=== PATIENT | female | born 1950 | race Caucasian/White ===

== ENCOUNTER 2016-04-17 09:27 | Emergency (ER) | payer MEDICARE, OTHER ==
[~2016-04-17] VITALS: Wt 75.5 kg
[~2016-04-17 09:27] MED LIST: AMLO-147 PO; ASPI-664 PO; BENA20TA48 PO; CHOL100062 PO; CIPR500T4 PO; CLOT30CR24 TOP; FLUT16SP17 NASAL; LEVO200T45 PO; METF-382 PO; NAPR500T8 PO; OMEP20CA16 PO; PHEN-538 PO; TIMO10DR7 BOTH EYES; ZOC20 PO
[2016-04-17] MEDS ORDERED: ONDANSETRON 4 MG INJ IV STA (10:22)
[2016-04-17] MEDS ORDERED: morphine 2 MG INJ IV STA (10:22)
[2016-04-17] MEDS ORDERED: SOD CHLORIDE 0.9% 1,000 ML IV STA (10:22)
[2016-04-17 10:59] LABS: BASOPHILS % 0.5 % (0.0-2.0); EOSINOPHILS % 0.5 % (0.0-7.0); HEMOGLOBIN 13.7 g/dl (12.0-16.0); LYMPHOCYTES # 1.8 10^3/ul (0.8-2.9); MEAN CORPUSCULAR HEMOGLOBIN 28.9 pg (29.0-33.0); MEAN CORPUSCULAR HGB CONC 33.3 g/dl (32.0-37.0); MEAN CORPUSCULAR VOLUME 86.8 fl (82.0-101.0); MEAN PLATELET VOLUME 9.5 fl (7.4-10.4); MONOCYTE # 0.5 10^3/ul (0.3-0.9); MONOCYTES % 5.4 % (0.0-11.0); NEUTROPHIL # 6.4 10^3/ul (1.6-7.5); NEUTROPHILS % 72.6 % (39.0-77.0); PLATELET COUNT 293 10^3/UL (140-440); RED BLOOD COUNT 4.73 10^6/ul (4.20-5.40); RED CELL DISTRIBUTION WIDTH 14.1 % (11.5-14.5); UNCORRECTED WBC 8.8 10^3/ul (4.8-10.8); WHITE BLOOD COUNT 8.8 10^3/ul (4.8-10.8)
[2016-04-17 11:00] LABS: ADD UMIC YES; URINE BILIRUBIN (Dip) NEGATIVE (NEGATIVE); URINE BLOOD (Dip) TRACE (NEGATIVE); URINE COLOR LT. YELLOW (YELLOW); URINE KETONES (Dip) NEGATIVE (NEGATIVE); URINE LEUKOCYTE ESTERASE (Dip) 3+ (NEGATIVE); URINE NITRITE (Dip) NEGATIVE (NEGATIVE); URINE TOTAL PROTEIN (Dip) NEGATIVE (NEGATIVE); URINE UROBILINOGEN (Dip) 0.2 E.U./dL (0.1-1.0)
[2016-04-17 11:02] LABS: CONDITION 1
[2016-04-17 11:03] LABS: ALBUMIN 4.6 g/dl (3.3-4.9)
[2016-04-17 11:06] LABS: ALBUMIN/GLOBULIN RATIO 1.09; BILIRUBIN,INDIRECT 0.4 mg/dl (0-1.1); BILIRUBIN,TOTAL 0.4 mg/dl (0.2-1.3); CREATININE 0.45 mg/dl (0.44-1.00); TOTAL PROTEIN 8.8 g/dl (6.1-8.1)
[2016-04-17 11:07] LABS: CALCIUM 9.2 mg/dl (8.4-10.2)
[2016-04-17 11:12] LABS: SQUAMOUS EPITHELIAL CELL,UR MODERATE; URINE RBCS 0-2 /HPF ([, 0])
[2016-04-17 11:13] LABS: BACTERIA,URINE FEW
--- NOTE | 2016-04-17 12:04 | RADRPT ---
PROCEDURE: CT Abdomen and Pelvis without contrast CLINICAL INDICATION: Abdominal pain with radiation to lower back with nausea TECHNIQUE: Transaxial images were obtained through the abdomen and pelvis on a multi-slice scanner without the intravenous contrast administration. No oral contrast had previously been given. Sagit ash and coronal re-formations were subsequently reconstructed. One or more of the following dose reduction techniques were used: - Automated exposure control. - Adjustment of the mA and/or kV according to patient size. - Use of iterative reconstruction technique. Radiation dose: CTDIvol = 14.48 mGy; DLP = 817.30 mGy-cm. COMPARISON: Comparison to 04/24/2015 FINDINGS: Lung bases: The visualized lung bases appear unremarkable. Liver: Normal in size and in attenuation. There is no focal lesion. Gallbladder: A 3 cm gallstone is seen within the gallbladder, unchanged of the gallbladder wall is n ot thickened. Bile ducts: The common hepatic duct is prominent and 8 mm in cross diameter but the common bile duct tapers to the head of the pancreas. Pancreas: Appears normal with no mass or inflammation evident. Spleen: Normal in size with no focal lesion. Adrenals: Normal with no mass identified. Kidneys, ureters and bladder: The kidneys are normal in size and there is no mass, pathological calc ification, or hydronephrosis evident. There is minimal bilateral perinephric stranding. The ureters are normal in caliber and no ureteroliths are identified. The bladder is suboptimally distended givi ng the wall of thickened appearance. Reproductive organs: The uterus is absent. There is a 1.9 cm right adnexal cyst. Multiple phleboli ths are seen within the pelvis. Stomach and bowel: The colon is quite redundant. There are. A staple line is seen within small bow el located in the right lower quadrant. Surgical xiomy are seen within the anterior right lower q uadrant with 1 also seen more inferiorly within the right anterior intraperitoneal fat. There is no evidence of bowel obstruction or inflammation. The stomach appears unremarkable. Appendix: Portions of an and unremarkable appearing vermiform appendix are tentatively identified. Peritoneum: No free intraperitoneal fluid or air is identified. Aorta: There is atherosclerotic vascular calcification but no abdominal aortic aneurysm is evident. IVC: Unremarkable. Lymph nodes: No pathologically enlarged nodes are identified. Osseous structures: Mild degenerative facet changes are evident most extensive at L4-L5 and L5-S1. Mild degenerative endplate changes are evident. Soft tissues: There is thinning of the midline anterior abdominal wall at the umbilicus with bulging anteriorly. Several small marginated fat densities are seen within the anterior pelvic subcutaneou s fat suspicious for a small lipomas. Several punctate calcifications are seen within the thigh mus culature bilaterally. IMPRESSION: 1. A 3 cm gallstone is again evident. The gallbladder is mildly distended but the wall is not thic kened. The common hepatic duct remains dilated at approximately 8 mm but the common bile duct taper s normally to the head of the pancreas but the pancreas appearing normal. 2. Mild perinephric stranding is again evident without evidence of urinary outflow obstruction or u reterolithiasis. The bladder is now poorly distended giving the wall of thickened appearance. 3. Again there is evidence of previous small bowel surgery. The colon is redundant but there is no evidence of bowel obstruction or inflammation. 4. There is again thinning of the midline anterior abdominal wall musculature at the midline in the umbilical region neural with anterior bulging. There several ring-like areas of fatty density are seen within the anterior pelvic subcutaneous fat suspicious for lipomas, unchanged. Multiple puncta te calcifications are again seen within the pelvis compatible with phleboliths but also within the t high musculature. Parasitic calcifications cannot be excluded. Physician Jeronimo Date Time Electronically viewed and signed by Physician Jeronimo on 04/17/2016 12:04 /
[2016-04-17] MEDS ORDERED: DICLOFENAC SODIUM 37.5 MG/ML VIAL IV STA (12:29)
[2016-04-17] MEDS ORDERED: CEFTRIAXONE 1 GM/50 ML (PMX) 50 ML IVPB ONE (12:30)
[2016-04-17 13:19] VITALS: BP 167/72; PULSE 67; RESP 18; TEMP 98.1
--- NOTE | 2016-04-17 13:29 | ERD ---
ER Documentation Chief Complaint Date/Time DATE: 04/17/16 TIME: 13:20 Chief Complaint LOWER ABD PAIN RAD INTO BACK W NAUSEA HPI 65-year-old female presents to the ER with suprapubic pain is just over the bladder just lateral to the bladder area that is coming by nausea. She denies fever and chills. Denies any upper abdominal pain. Pain is been present for 2 days and is not a better worse by anything. She also has increased urinary frequency and mild dysuria. She's had no blood in her urine. ROS All systems reviewed and are negative except as per history of present illness. Medications Home Meds Active Scripts Hydrocodone/Acetaminophen ([place] 5-325 Tablet) 1 Each Tablet, 1 EACH PO Q6, #10 TAB Prov:FAVIAN NINA DO 04/17/16 Ondansetron (Zofran Odt) 4 Mg Tab.rapdis, 4 MG PO Q6, #10 Prov:FAVIAN NINA DO 04/17/16 Nitrofurantoin Monohyd Macrocr* (Macrobid*) 100 Mg Capsr, 100 MG PO BID for 10 Days, CAP Prov:MAICOFAVIAN DO 04/17/16 Ciprofloxacin Hcl* (Ciprofloxacin Hcl*) 500 Mg Tablet, 500 MG PO BID for 10 Days , TAB Prov:FAVIAN NINA DO 04/17/16 Sodium Polystyrene Sulfonate* (Kayexalate*) 15 Gm/60 Ml Susp, 15 GM PO DAILY for 5 Days, ML Prov:FAVIAN NINA DO 04/17/16 Phenazopyridine Hcl* (Pyridium*) 200 Mg Tab, 200 MG PO TID Y for URINARY PAIN, # 6 TAB Prov:MUNIRA ORNELAS 09/17/15 Ciprofloxacin Hcl* (Ciprofloxacin Hcl*) 500 Mg Tablet, 500 MG PO BID for 7 Days , TAB Prov:MUNIRA ORNELAS 09/17/15 Aspirin* (Aspirin* EC) 81 Mg Tablet., 81 MG PO DAILY for 30 Days, TAB Prov:ANNAMARIA 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 08/28/15 Reported Medications Omeprazole* (Omeprazole*) 20 Mg Capsule., 20 MG PO DAILY, #30 CAP 04/24/15 Benazepril Hcl* (Benazepril Hcl*) 20 Mg Tablet, 20 MG PO DAILY, #30 TAB 04/24/15 Metformin Hcl* (Metformin Hcl*) 500 Mg Tablet, 500 MG PO BID WITH MEALS, #30 TAB 04/24/15 Levothyroxine Sodium* (Levoxyl*) 200 Mcg Tablet, 200 MCG PO BEFORE BREAKFAST, # 30 TAB 04/24/15 Fluticasone Propionate* (Fluticasone Propionate* Nasal) 50 Mcg/[place] - 16 Gm Br[place]ley.susp, 2 SPRAYS NASAL DAILY, EA TO EACH NOSTRIL 05/21/14 Naproxen* (Naproxen EC*) 500 Mg Tablet.dr, 500 MG PO BID Y for INTESTINAL SPASMS /CRAMPING, TAB 05/21/14 Cholecalciferol* (Vitamin D3*) 1,000 Unit Tablet, 1000 UNIT PO DAILY, TAB 05/21/14 Amlodipine Besylate* (Amlodipine Besylate*) 10 Mg Tablet, 10 MG PO DAILY, TAB 05/21/14 Simvastatin (Simvastatin) 20 Mg Tablet, PO DAILY 07/19/11 Discontinued Reported Medications Clotrimazole* (Clotrimazole* AF) 1% - 30 Gm Cream.gm., 1 APPLIC TOP BID, TUB 08/24/15 Timolol Maleate* (Timoptic*) 0.5%- 5ml Opht, 1 DROP BOTH EYES BID, EA 07/10/14 Allergies Allergies: Coded Allergies: No Known Drug Allergy (Verified Allergy, Mild, 09/17/15) PMhx/Soc History of Surgery: No Anesthesia Reaction: No Hx Neurological Disorder: No Hx Respiratory Disorders: No Hx Cardiac Disorders: No Hx Psychiatric Problems: No Hx Miscellaneous Medical Probl: No Hx Alcohol Use: No Hx Substance Use: No Hx Tobacco Use: No Smoking Status: Never smoker Physical Exam Vitals Vital Signs Date Time Temp Pulse Resp B/P Pulse Ox O2 Delivery O2 Flow Rate FiO2 04/17/16 13:19 98.1 67 18 167/72 98 Room Air 04/17/16 09:29 97.9 60 20 182/72 99 Physical Exam Const: [] No distress Head: Atraumatic Eyes: Normal Conjunctiva ENT: Normal External Ears, Nose and Mouth. Neck: Full range of motion..~ No meningismus. Resp: Clear to auscultation bilaterally Cardio: Regular rate and rhythm, no murmurs Abd: Soft, non tender, non distended. Normal bowel sounds Skin: No petechiae or rashes Back: No midline or flank tenderness Ext: No cyanosis, or edema Neur: Awake and alert and oriented 3, no focal deficits Psych: Normal Mood and Affect Result Diagram: 04/17/16 1022 04/17/16 1015 Results 24 hrs Laboratory Tests Test 04/17/16 10:15 04/17/16 10:22 04/17/16 10:41 Alanine Aminotransferase (ALT/SGPT) 39IU/L Albumin 4.6g/dl Albumin/Globulin Ratio 1.09 Alkaline Phosphatase 106IU/L Anion Gap 22 Aspartate Amino Transf (AST/SGOT) 78IU/L Blood Urea Nitrogen 13mg/dl Calcium Level 9.2mg/dl Carbon Dioxide Level 25mmol/L Chloride Level 101mmol/L Creatinine 0.45mg/dl Direct Bilirubin 0.00mg/dl Globulin 4.20g/dl Glucose Level 237mg/dl Indirect Bilirubin 0.4mg/dl Lactic Acid Level 2.4mmol/L Lipase 38U/L Potassium Level 6.0mmol/L Sodium Level 142mmol/L Total Bilirubin 0.4mg/dl Total Protein 8.8g/dl Basophils # 0.010^3/ul Basophils % 0.5% Blood Morphology Comment Eosinophils # 0.010^3/ul Eosinophils % 0.5% Hematocrit 41.0% Hemoglobin 13.7g/dl Lymphocytes # 1.810^3/ul Lymphocytes % 21.0% Mean Corpuscular Hemoglobin 28.9pg Mean Corpuscular Hemoglobin Concent 33.3g/dl Mean Corpuscular Volume 86.8fl Mean Platelet Volume 9.5fl Monocytes # 0.510^3/ul Monocytes % 5.4% Neutrophils # 6.410^3/ul Neutrophils % 72.6% Nucleated Red Blood Cells # 0.010^3/ul Nucleated Red Blood Cells % 0.0/100WBC Platelet Count 41889^3/UL Red Blood Count 4.7310^6/ul Red Cell Distribution Width 14.1% White Blood Count 8.810^3/ul Urine Bacteria FEW Urine Bilirubin NEGATIVE Urine Clarity HAZY Urine Color LT. YELLOW Urine Glucose 0.5%% Urine Hemoglobin TRACE Urine Ketones NEGATIVE Urine Leukocyte Esterase 3+ Urine Microscopic RBC 0-2/HPF Urine Microscopic WBC 5-10/HPF Urine Nitrite NEGATIVE Urine Specific [place] 1.015 Urine Squamous Epithelial Cells MODERATE Urine Total Protein NEGATIVE Urine Urobilinogen 0.2 E.U./dL Urine pH 6.5 Current Medications Medications (Trade) Dose Ordered Sig/Álvaro Route PRN Reason Start Time Stop Time Status Last Admin Dose Admin Sodium Chloride (NS) 1,000 ml @ 1,000 mls/hr Q1H STAT IV 04/17/16 10:22 04/17/16 11:21 DC 04/17/16 10:46 Morphine Sulfate (morphine) 2 mg ONCE STAT IV 04/17/16 10:22 04/17/16 10:24 DC 04/17/16 10:47 Ondansetron HCl 4 mg 4 mg ONCE STAT IV 04/17/16 10:22 04/17/16 10:23 DC 04/17/16 10:46 Ceftriaxone Sodium (Rocephin) 50 ml @ 100 mls/hr ONCE ONCE IVPB 04/17/16 12:30 04/17/16 12:59 DC 04/17/16 12:37 Diclofenac Sodium (Dyloject) 37.5 mg ONCE STAT IV 04/17/16 12:29 04/17/16 12:30 DC 04/17/16 12:37 Furosemide 40 mg 40 mg ONCE ONCE IV 04/17/16 13:30 04/17/16 13:31 DC 04/17/16 13:38 Sodium Chloride (NS) 1,000 ml @ 1,000 mls/hr Q1H ONCE IV 04/17/16 13:30 04/17/16 14:29 04/17/16 13:38 Procedures/MDM Pyelonephritis without abnormal vital signs are elevated white count. Very well- appearing patient. She has a urinary tract infection per sepsis described as well as 5-10 white blood cells on urinalysis as well as flank pain and perinephric stranding consistent with pyelonephritis. She also has mild diabetic hyperglycemia which was treated with a liter of normal saline in the emergency room. She is an elevated lactic acid of 2.4 be secondary to nausea and dehydration. Signs of overwhelming bacterial infection. She is well- appearing. She does have an elevated potassium of 6. No EKG changes concerning for acute hyperkalemia. She was given Lasix 40 mg in the emergency room for the purpose of reducing her potassium. I am discharging her with Kayexalate and primary care follow-up in the next 2 days or return to ER if she cannot get appointment in the next couple of days for potassium recheck. Instructions were given both verbally and in writing. She verbalizes understanding of instructions. She was given a gram of Rocephin in the emergency room as well. IV Zofran relieved her nausea completely a small amount of morphine administered pain. Patient appears well and has no symptoms at this time. Outpatient upon her furnace is appropriate. CT abdomen pelvis interpretation: 37 a gallstone, mild or nephric fat stranding , no obstruction, no free air, no acute fractures EKG interpretation: Normal sinus rhythm rate of 63, normal axis, no ST or T- wave changes concerning for acute ischemia, normal intervals, normal EKG Departure Diagnosis: Primary Impression: Pyelonephritis Additional Impressions: Dehydration Hyperkalemia Hyperglycemia Condition: Stable FAVIAN NINA DO Apr 17, 2016 13:28
[2016-04-17] MEDS ORDERED: SOD CHLORIDE 0.9% 1,000 ML IV ONE (13:30)
[2016-04-17] MEDS ORDERED: FUROSEMIDE 40 MG INJ IV ONE (13:30)
[2016-04-17] MEDS ORDERED: SODI15OR8 PO (13:42)
[2016-04-17] MEDS ORDERED: HYDR-906 PO (13:46)
[2016-04-17] MEDS ORDERED: NITR-58 PO (13:46)
[2016-04-17] MEDS ORDERED: ONDA4TAB11 PO (13:46)
[2016-04-17] MEDS ORDERED: CIPR500T4 PO (13:46)
== END 2016-04-17 14:53 | disposition home or self-care (01) ==
LOC: E/R 09:27
DX: N12 Tubulo-interstitial nephritis, not specified as acute or chronic (principal); E86.0 Dehydration; E87.5 Hyperkalemia; E11.65 Type 2 diabetes mellitus with hyperglycemia; E03.9 Hypothyroidism, unspecified; R11.0 Nausea; Z79.82 Long term (current) use of aspirin; Z79.84 Long term (current) use of oral hypoglycemic drugs
CPT/HCPCS: 74176; 80053; 81001; 83605; 83690; 85025; J0696; J1940; J2270; J2405; J7030; 36415; 81003; 93005; 96361; 96365; 96375